=== PATIENT | male | born 1980 | race Caucasian/White ===

== ENCOUNTER → 2017-02-15 | Outpatient (CLI) | payer BC ==
[~2017-02-15] VITALS: Ht 177.8 cm; Wt 169.2 kg
[~2017-02-15] MED LIST: ALBU1AER9 INH; GLC500 PO; LISI-461 PO
[2017-02-15 14:18] VITALS: BP 139/87; PULSE 85; Ht 177.8 cm; Wt 169.2 kg
== END | disposition home or self-care (01) ==
LOC: C.NEUR 13:19
PROVIDERS: ATTEND Internal Medicine Pulmonary Disease
DX: G47.30 Sleep apnea, unspecified (principal)

== ENCOUNTER → 2017-03-29 | Outpatient (CLI) | payer BC ==
--- NOTE | 2017-03-30 06:16 | PAP/PSG TECHNICIAN REPORT ---
[facility] Scheduling Representative Polysomnogram Report Study name: None Report date: 03/30/2017 Study date: 03/29/2017 Referring Physician: DR. GALICIA Name: TONY ARCEO Interpreting Physician: Marcelo Galicia M.D. Date of : 1980 Scheduling Representative: NAVIN Marques. Sex: Male Age: 36 StudyType: PSG PAP Weight: 375 lbs 18.5 INCHES Height: 36 years, Height 5' 10" Neck Circum: BMI: 53.8 Medications: ALBUTEROL SULFATE, FLUOXETINE HCL 20 MG, INDOMETHACIN 50 MG, LISINOPRIL 20 MG, METFORMIN HCL 1000 MG Patient History PATIENT HAS HISTORY OF SLEEP APNEA. HE WAS DIAGNOSED IN 2004 AND HAS BEEN WEARING CPAP SINCE THEN. HE HAD A RETITRATION DONE IN 2013 BUT NO CHANGE WAS MADE TO HIS THERAPY. HE CONTINUES TO FEEL FATIGUE DURING THE DAY. HE IS HERE TODAY FOR AN UPDATE ON HIS PRESSURE. ESS = 19 RM 2 Parameters Monitored NPSG: E1-M2, E2-M1, Fp1-M2, Fp2-M1, F3-M2, F4-M2, F4-M1, C3-M2, C4-M2, C4-M1, O1-M2, O2-M2, O2-M1, T3-M2, T4-M1, P3-M2, P4-M1, CHIN1, CHIN2, HR, EKG, Legs, PFLOW, SNOR, FLOW, CFLOW, Tidal Volume, THOR, ABDO, SpO2, PLTH, CPRESS, ETCO2 Wave, ETCO2, pH Sleep Architecture Sleep Stages Time at Lights Off 9:52:49 PM STAGES Time (min.) TST (%) Time at Lights On 5:29:19 AM Wake 25.0 -- Total Recording Time (TRT) 457.00 min. N1 17.0 4 Total Sleep Period (TSP) 446.0 min. N2 234.5 54 Total Sleep Time (TST) 431.5min. N3 62.5 14 Awake Time 25.5 min. REM 117.5 27 Wake after Sleep Onset 22.5 min. Sleep Efficiency (SE) 95 % Sleep Onset Latency (BINTA) 2.5 min. Number of Stage 1 Shifts None Awakenings 15 Stage Changes 62 Number of REM periods 3 REM 117.5 27 REM Latency 138.5 min. NREM 314.0 73 Body Position Analysis Supine Right Left Side Prone Vertical Total Sleep Time (min.) 322.5 0.0 122.8 122.76 0.0 0.0 Total Sleep Time (%) 72% 0% 28% 28 0% N/A% Total Sleep Time REM (min.) 103.7 0.0 13.8 None 0.0 0.0 Total Sleep Time NREM (min.) 205.0 0.0 109.0 None 0.0 0.0 Intermittent Wake (min.) 13.7 0.0 11.3 None 0.0 0.0 Total Sleep Period (%) 71% None None None None None Arousals Myoclonus (PLM) * Events Count Index Events Count Index Spontaneous 34 5 Events Awake (PLMW) 24 57.6 Respiratory 15 1.9 Events Asleep w/ Arousal (PLMA) 5 0.7 PLM 5 1 Events Asleep w/o Arousal (PLMS) 69 9.6 Snoring 5 1 Total Asleep 74 10.3 Total 59 8 Total 98 13 Respiratory Analysis * CA OA MA CH H RERA Total Count 1 0 0 0 48 0 49 Index 0.1 0.0 0.0 0 6.7 0 6.8 Mean Duration 10.1 0.0 0.0 0.00 24.5 0.0 24.2 Longest Duration 10.1 0.0 0.0 0.00 0.0 0.0 49.0 Respiratory Event Summary Total Supine ~Supine Right Left Prone REM NREM Apneas Count 1 1 0 N/A 0 N/A 1 0 Index 0.1 0 0 N/A 0.0 N/A 1 0 Hypopneas (4% Desat) Count 48 46 2 N/A 2 N/A 7 41 Index 6.7 8.9 1 N/A 1.0 N/A 3.6 7.8 Apneas & All Hypopneas Count 49 47 2 N/A 2 N/A 8 41 Index 6.8 9 1 N/A 1 N/A 4.1 7.8 Respiratory Events (Machine Assembler+All Hyp+RERA) Count 49 47 2 N/A 2 N/A 8 41 Index 6.8 9 1 N/A 1.0 N/A 4.1 7.8 Respiratory Related Arousal Count 15 47 0 N/A 0 N/A 0 14 Index 1.9 3 0 N/A 0 N/A 0 3 Snoring Analysis Supine Right Left Prone REM NREM Total Snore duration 2.1 min Snores count 115 N/A 11 N/A 5 121 126 Snore mean duration 1.0 Sec Snores index 22 N/A 5 N/A 2.6 23.1 17.5 TST with snoring (%) 0.5% Desaturation Event Summary: Minimum %SpO2 Event Count Mean/Min/Max Duration(sec.) Desaturation Index % Time In Bed > 90 53 31.2 / 10.3 / 65.4 7.1 97.8 86 - 90 0 N/A 0.0 2.2 81 - 85 0 N/A 0.0 0.0 76 - 80 0 N/A 0.0 0.0 71 - 75 0 N/A 0.0 0.0 66 - 70 0 N/A 0.0 0.0 61 - 65 0 N/A 0.0 0.0 56 - 60 0 N/A 0.0 0.0 51 - 55 0 N/A 0.0 0.0 < 50 0 N/A 0.0 0.0 Total REM NREM Awake <50% 0.0 min. 0.0 min. 0.0 min. 0.0 min. 51 - 60% 0.0 min. 0.0 min. 0.0 min. 0.0 min. 61 - 70% 0.0 min. 0.0 min. 0.0 min. 0.0 min. 71 - 80% 0.0 min. 0.0 min. 0.0 min. 0.0 min. 81 - 90% 10.2 min. 0.3 min. 9.6 min. 0.3 min. 91 - 100% 446.2 min. 117.2 min. 304.4 min. 24.6 min. Average 94 94 93 95 Minimum SpO2 87 90 87 89 Desaturation Event Index 7.0 4.1 8.2 4.8 # Desat. Events below 89% 4 N/A 4 N/A Time(%) with Saturation below 89% 0.1 0.0 0.1 0.0 Time(min.) with Saturation below 89% 0.7 0.0 0.7 0.0 Time (mins) REM (mins) NREM (mins) % of TST SpO2 Below 90% 31 3 N28 0.7 SpO2 Below 88% 3 0 0 0 Heart Rate Analysis Min (bpm) Max (bpm) Average (bpm) Awake 50 85 62 NREM 51 78 61 REM 44 73 59 Overall 44 78 60 Supplemental O2 Values Minimum O2 level: None Value Start Time End Time Scheduling Representative Comments Mr. Arceo slept in the left and supine positions. PVC's noted. Leg movements noted. No bruxism noted. CPAP was initiated at +4 CMH2O and up-titrated to an optimal level of +13 CMH2O, which nearly eliminated all respiratory events and snoring. A Resmed Mirage Quattro full face size medium mask was used during titration Mr. Arceo awoke to use the restroom 0 times during the night. Mr. Arceo stated I slept as well as I do when I am in my own bed. The final report will be interpreted and signed by a sleep physician. The completed physician report will then be placed in the patient medical record. Therapy Event: Therapy (cm H20) 4 8 9 10 11 12 13 Total Time at Pressure (min.) 2.7 37.6 14.3 6.5 19.7 297.1 78.6 TST at Pressure (min.) 0.2 37.6 14.3 6.5 18.2 285.6 69.1 # Periods 1 1 1 1 1 1 1 Sleep Onset (min.) 2.5 0.0 0.0 0.0 0.0 0.0 0.0 REM Onset (min.) N/A N/A N/A N/A N/A 60.3 0.0 Sleep Efficiency % 6 100 100 100 92 96 87 Wakefulness (%) 93.9 0.0 0.0 0.0 7.6 3.9 12.1 Wakefulness (min.) 2.5 0.0 0.0 0.0 1.5 11.5 9.5 NREM 1 (%) 6.1 3.6 3.5 0.0 3.8 3.6 4.5 NREM 1 (min.) 0.2 1.3 0.5 0.0 0.7 10.8 3.5 NREM 2 (%) 0.0 49.2 84.2 100.0 88.6 45.8 56.0 NREM 2 (min.) 0.0 18.5 12.0 6.5 17.5 136.0 44.0 NREM 3 (%) 0.0 47.2 12.3 0.0 0.0 14.5 0.0 NREM 3 (min.) 0.0 17.7 1.8 0.0 0.0 43.0 0.0 REM (%) 0.0 0.0 0.0 0.0 0.0 32.3 27.5 REM (min.) 0.0 0.0 0.0 0.0 0.0 95.9 21.6 # Arousals 0 0 6 4 11 31 7 Arousal Index 0.0 0.0 25.2 37.0 36.2 6.5 6.1 # Snore 0 45 18 8 17 36 2 Snore Index 0.0 71.9 75.5 74.0 56.0 7.6 1.7 AHI 0.0 0.0 46.1 101.7 59.3 1.9 0.0 AHI Supine 0.0 0.0 46.1 101.7 59.3 2.6 0.0 AHI Non-Supine N/A N/A N/A N/A N/A 1.0 N/A NREM AHI 0.0 0.0 46.1 101.7 59.3 0.3 0.0 REM AHI N/A N/A N/A N/A N/A 5.0 0.0 RDI 0.0 0.0 46.1 101.7 59.3 1.9 0.0 # Obstructive 0 0 0 0 0 0 0 # Central Ap 0 0 0 0 0 1 0 # Mixed 0 0 0 0 0 0 0 # Hypopneas 0 0 11 11 18 8 0 RERAS 0 0 0 0 0 0 0 Total Respiratory Events 0 0 11 11 18 9 0 Time Below SpO2 89.00% (min.) 0.0 0.0 0.5 0.0 0.2 0.0 0.0 Mean NREM SpO2 (%) 97 92 92 93 93 94 94 Mean REM SpO2 (%) N/A N/A N/A N/A N/A 94 94 Mean Sleep SpO2 (%) 97 92 92 93 93 94 94 Min NREM SpO2 (%) 97 90 88 88 87 91 91 Min REM SpO2 (%) N/A N/A N/A N/A N/A 90 91 Position Supine (min.) 0.2 37.6 14.3 6.5 18.2 162.9 69.1 Position Non-supine (min.) 0.0 0.0 0.0 0.0 0.0 122.8 0.0 LM Index Sleep 0.0 6.4 4.2 9.2 16.5 10.7 10.4 LM Index NREM 0.0 6.4 4.2 9.2 16.5 10.1 12.6 LM Index REM N/A N/A N/A N/A N/A 11.9 5.5 Mean Heart Rate (bpm) 65 71 67 65 64 59 56 Min Heart Rate (bpm) 63 62 55 58 54 49 44
--- NOTE | 2017-04-01 12:28 | Sleep Study ---
Sleep Study Report Date of Service: 03/24/2017 Sleep Study Report Clinical data: The patient is a 36-year-old male with BMI of 53.8 referred by myself and Dr. Hidalgo for a repeat CPAP titration study. He currently is wearing CPAP 13 cm water pressure. However he continues to experience fatigue throughout the day. His Benicia sleepiness Score is elevated at 19/24. Sleep architecture: Total sleep period was 446 minutes. Total sleep time was 431.5 minutes divided between 314 minutes of non-REM sleep and 117.5 minutes of REM sleep. Sleep onset latency was 2.5 minutes. REM latency was 138.5 minutes. Sleep efficiency was 95%. Wake after sleep onset was 22.5 minutes. Sleep consisted of stage N1 4%, N2 54%, N3 14%, and REM 27%. Arousal data: 59 arousals recorded for an index of 8 per hour. PLM data: 74 limb movements during sleep were noted for an index of 10.3 per hour with an arousal index of 0.7 per hour. Respiratory data: The AHI was 6.8. There was 1 central apneic episode 10 seconds in duration. There were 48 hypopneas episodes. The mean duration of hypopnea was 24.5 seconds. Oximetry data: Transient desaturation was seen. Oxygen delbert was 87% during non-REM sleep. Mean saturation was 94%. Time below 88% was 3 minutes. EKG data: Heart rates ranged from 44 to 78 beats per minute. PVCs were noted. Journalism Instructor's comments and treatment summary: The patient slept in the left and supine positions. He used a ResMed Mirage Quattro full size medium mask. He was titrated up to 13 cm of water pressure CPAP. At his final pressure setting , he slept for 69 minutes with an AHI of 0. Impression: 36-year-old male with severe sleep apnea corrected with CPAP 13 cm water pressure utilizing the above-noted interface Recommendations the patient should be continued on his current settings of CPAP. Follow-up in 90 days to document efficacy and compliance is recommended. Copies To 1: Sadie Hidalgo D.O.
== END | disposition home or self-care (01) ==
LOC: C.NEUR 21:00
PROVIDERS: ATTEND Internal Medicine Pulmonary Disease
DX: G47.33 Obstructive sleep apnea (adult) (pediatric) (principal)

== ENCOUNTER → 2017-04-15 | Outpatient (CLI) | payer BC ==
[~2017-04-15] VITALS: Ht 177.8 cm; Wt 168.2 kg
[2017-04-15 16:26] VITALS: BP 128/88; PULSE 96; Ht 177.8 cm; Wt 168.2 kg
== END | disposition home or self-care (01) ==
LOC: C.NEUR 14:50
PROVIDERS: ATTEND Internal Medicine Pulmonary Disease
DX: G47.30 Sleep apnea, unspecified (principal); E66.01 Morbid (severe) obesity due to excess calories; R53.83 Other fatigue

== ENCOUNTER → 2017-11-16 | Outpatient (CLI) | payer BC | END | disposition home or self-care (01) | LOC: C.CPL 15:00 | PROVIDERS: ATTEND Family Medicine | DX: R06.02 Shortness of breath (principal) ==